=== PATIENT | female | born 2000 | race Caucasian/White ===

== ENCOUNTER → 2023-05-21 10:30 | Outpatient (REF) | payer OTHER, SELFPAY ==
[2023-05-21 13:58] LABS: HIV Combo Negative (Negative)
[2023-05-21 15:37] LABS: Hepatitis B Surface Antigen Negative (Negative)
[2023-05-21 15:54] LABS: Hepatitis B Surface Antibody Negative; Hepatitis C Antibody Negative (Negative)
== END ==
LOC: OHS 10:30
PROVIDERS: ATTENDING PHYSICIAN Nurse Practitioner Family
DX: Z57.8 Occupational exposure to other risk factors (principal)
CPT/HCPCS: 36415; 86706; 86803; 87340; 87389